=== PATIENT | female | born 1950 | race Caucasian/White ===

== ENCOUNTER 2018-05-05 10:12 | Observation (INO) | payer BC ==
[~2018-05-05] VITALS: Ht 157.5 cm; Wt 84.0 kg
[~2018-05-05 10:12] MED LIST: AMLODIPINE5 MG PO; CRESTOR5 MG PO; ENALAPRIL20 MG PO; ENALAPRIL5 MG PO; FLEXERIL5 M1 PO; GLYBURIDE5 MG PO; METFORMIN500 MG PO; NAPROSYN500 MG PO; NORVASC2.5 MG PO; PAXIL30 MG PO; PERCOCET1 TA2 PO
--- NOTE | 2018-05-05 10:15 | NUR ---
PT TO ROOM 12 VIA EMS
[2018-05-05 10:42] LABS: HEMATOCRIT 38.7 % (37.0-47.0); HEMOGLOBIN 12.4 g/dl (12.0-16.0); IMMATURE GRANULOCYTES 0.5 % (0.0-5.0); MEAN CORPUSCULAR HGB 28.5 pG CALC (26.0-32.0); NEUT# 5.59 thou/uL (2.00-7.15); RED BLOOD COUNT 4.35 mill/uL (4.20-5.60); RED CELL DISTRI WIDTH 13.2 % (11.5-15.5)
[2018-05-05] MEDS ORDERED: JANUVIA100 MG PO (10:50)
[2018-05-05 10:51] LABS: INFLUENZA A NONE DETECTED (NONE DETECT); INFLUENZA B NONE DETECTED (NONE DETECT)
[2018-05-05] MEDS ORDERED: ATORVASTATIN CA80 MG PO (10:51)
[2018-05-05] MEDS ORDERED: LANTUS100 UNIT/M SC (10:51)
[2018-05-05] MEDS ORDERED: ASPIRIN81 MG PO (10:51)
[2018-05-05] MEDS ORDERED: METOPROL TAR25 MG PO (10:53)
[2018-05-05] MEDS ORDERED: VIIBRYD20 MG PO (10:54)
[2018-05-05] MEDS ORDERED: FUROSEMIDE20 MG PO (10:55)
[2018-05-05] MEDS ORDERED: POT CHLORIDE20 ME3 PO (10:56)
[2018-05-05] MEDS ORDERED: LORAZEPAM0.5 MG PO (10:57)
[2018-05-05 11:03] LABS: ANION GAP 17 (6-22 (CALC)); BUN 18 mg/dL (8-23); BUN/CREATININE RATIO 18 (12-20 (CALC)); CARBON DIOXIDE 22 mmol/l (22-30); CHLORIDE 103 mmol/l (95-108); GFR 55 ML/MIN (>=60 (CALC)); GFR FOR AFR.AMER. > 60 ML/MIN (>=60 (CALC)); POTASSIUM 4.4 mmol/l (3.5-5.1); SODIUM 138 mmol/l (137-146)
--- NOTE | 2018-05-05 11:13 | NUR ---
PT RETURNED FROM RADIOLOGY. ADVISED OF WAIT TIME FOR TEST RESULTS. PT VOICED UNDERSTANDING. VSS.
--- NOTE | 2018-05-05 12:01 | NUR ---
ACCUCHSOCO Mazariegos MD AWARE. IV SITES HEALTHY. IV FLUIDS CONTINUE
--- NOTE | 2018-05-05 12:06 | NUR ---
REPORT CALLED TO NURSE ON [facility]. ADVISED OF ALL ATTACHMENTS, EVENTS, MEDS AND ADMIT POC. IV SITES HEALTHY. VSS.
--- NOTE | 2018-05-05 12:09 | NUR ---
TALKED TO PT REGARDING PROPER DIET AND OFFERED [facility] COMPOSITION MIXER TO VISIT PT WHILE SHE IS HERE. PT AGREED AND WAS THANKFUL FOR ANY HELP TO GET HER WELL.
--- NOTE | 2018-05-05 12:12 | NUR ---
PT TO [facility] ROOM 289 VIA STRETCHER IN NO APPARENT DISTRESS.
--- NOTE | 2018-05-05 12:16 | NUR ---
PT ARRIVED TO FLOOR VIA STRETCHER ACCOMPANIED BY CLARICE DEGROOT. TRANSPORTED TO BED FROM STRETCHER W/ ASSISTANCE BY DUNIA LAMB. ASSESSMENT COMPLETE. PT A/O X3. PT REPORTS FEELING UNABLE TO CONCETRATE. SPEECH IS CLEAR. RESP EVEN AND UNLABORED. LUNG SOUNDS CLEAR. TELE IN PLACE. LAST BM. 05/04/18. ABDOMEN DISTENDED AND SOFT. BOWEL SOUNDS ACTIVE X4. STRONG RADIAL AND PEDAL PULSES. #20 RAC SL. FLUSHED AND PATENT. SITE APPEARS HEALTHY. EMS #20 LAC SL. FLUSHED AND PATENT. SITE APPEARS HEALTHY. SKIN INTACT. PLAN OF CARE DISCUSSED. PT STATES UNDERSTANDING. SAFETY PRECAUTIONS IN PLACE. CALL LIGHT IN REACH. WILL CONTINUE TO MONITOR.
[2018-05-05 12:20] VITALS: BP 140/66
--- NOTE | 2018-05-05 14:43 | NUR ---
PT REPORTS DULL, PRESSURE TO HEAD 5 OUT OF 10 ON PAIN SCALE. MEDICATED W/ 2 325MG TYLENOL TABLETS. RELAXATION TECHNIQUES ENFORCED. ROOM LIGHT DIMMED AND CURTAINS SHUT. PT DENIES ANY FURTHER NEEDS AT THIS TIME. CALL LIGHT IN REACH. WILL CONTINUE TO MONITOR.
--- NOTE | 2018-05-05 15:35 | NUR ---
PT APPEARS TO BE SLEEPING IN BED. HEAD PAIN REASSESSED. PT STATES PAIN HAS REDUCED TO 4 OUT OF 10 ON PAIN SCALE. PT ALSO STATES RESTING AND DIMMED LIGHTING HELPS W/ HEAD PAIN. DENIES ANY FURTHER NEEDS AT THIS TIME. CALL LIGHT IN REACH. WILL CONTINUE TO MONITOR.
--- NOTE | 2018-05-05 19:00 | NUR ---
RECEIVED CHANGE OF SHIFT REPORT FROM Betty MIRELES LPN. PT ALERT AND ORIENTED AND LYING IN BED TALKING ON THE PHONE. NO APPARENT ACUTE DISTRESS NOTED. WILL CONTINUE TO MONITOR.
[2018-05-05 20:00] VITALS: BP 144/79
--- NOTE | 2018-05-06 | NUR ---
PT RESTING QUIETLY IN BED. NO APPARENT ACUTE DISTRESS NOTED IN PT'S CONDITION.
[2018-05-06 04:00] VITALS: BP 138/68
--- NOTE | 2018-05-06 04:18 | NUR ---
PT SLEPT WELL DURING THE NIGHT. NO APPARENT ACUTE CHANGES NOTED IN PT'S CONDITION
[2018-05-06 05:41] LABS: CHOLESTEROL HDL RATIO 2.2 (<4.4 (CALC))
[2018-05-06 08:34] VITALS: BP 125/61
--- NOTE | 2018-05-06 08:34 | NUR ---
PT ASSESSMENT COMPLETE. PT A/O X3. SPEECH IS CLEAR. PT STATES SHE FEELS SOME PRESSURE IN HER HEAD, FEELING LITTLE"UNDER THE WEATHER" PT DENIES ANY CONFUSION AT THIS TIME. PT STATES SHE FEELS A BIT ANXIOUS AT THE MOMENT. MEDICATED W/ ONE 0.5 MG XANAX. RESP EVEN AND UNLABORED. LUNG SOUNDS CLEAR. TELE IN PLACE. BOWEL SOUNDS ACTIVE X4. #20 LAC SL. FLUSHED AND PATENT. SITE APPEARS HEALTHY. #20 RAC NS @100. SITE APPEARS HEALTHY. PT VERBALIZES THAT SHE WOULD LIKE TO SPEAK WITH A NETWORK SECURITY ADMINISTRATOR BEFORE SHE IS D/C R/T TO HER DIABETES. PLAN OF CARE DISCUSSED. SAFETY PRECAUTIONS IN PLACE. CALL LIGHT IN REACH. WILL CONTINUE TO MONITOR.
[2018-05-06 12:00] VITALS: BP 125/67
--- NOTE | 2018-05-06 12:10 | NUR ---
PT SITTING IN RECLINER. DENIES AND PAIN OR NEEDS AT THIS TIME. CALL LIGHT IN REACH. WILL CONTINUE TO MONITOR.
[2018-05-06] MEDS ORDERED: ISOSORBIDE MONO30 MG PO (13:08)
[2018-05-06 13:26] LABS: URINE BILIRUBIN - DIPSTICK NEGATIVE (NEGATIVE); URINE BLOOD DIPSTICK NEGATIVE (NEGATIVE); URINE COLOR YELLOW; URINE GLUCOSE - DIPSTICK >=1000 mg/dL (NEGATIVE); URINE KETONE NEGATIVE (NEGATIVE); URINE LEUK ESTERASE NEGATIVE (NEGATIVE); URINE NITRITE - DIPSTICK NEGATIVE (Negative); URINE PH 5.5 (4.5-8.0); URINE PROTEIN - DIPSTICK NEGATIVE (NEG-TRACE); URINE SPECIFIC GRAVITY 1.015; URINE UROBILINOGEN - DIPSTICK 0.2 E.U./dL (0.2)
[2018-05-06 13:29] LABS: URINE CLARITY CLEAR
[2018-05-06 13:58] LABS: BARBITURATES NEGATIVE (NEGATIVE); COCAINE NEGATIVE (NEGATIVE); METHADONE NEGATIVE (NEGATIVE); OXCYCODONE NEGATIVE (NEGATIVE); TETRAHYDROCANNABIONOL NEGATIVE (NEGATIVE); TRICYLIC ANTIDEPRESSANTS NEGATIVE (NEGATIVE)
[2018-05-06] MEDS ORDERED: LANTUS100 UNIT/M SC (14:29)
[2018-05-06 15:58] VITALS: BP 114/61
--- NOTE | 2018-05-06 16:50 | NUR ---
EDUCATED PT ON USE OF GLUCOMETER AND THE DIFFERENCE BETWEEN A LANCET AND STRIPS. FOOD AND BEVERAGE COORDINATOR DEMONSTRATED USED OF GLUCOMETER, LANCET, AND STRIPS. PT FOLLOWED CHECKING HER OWN SUGAR. ALL QUESTIONED ANSWERED. REINFORCED TEACHING R/T LOGGING BLOOD SUGARS AT HOME AND DIET. PT STATES UNDERSTANDING. WILL CONTINUE TO MONITOR
--- NOTE | 2018-05-06 18:00 | NUR ---
Discharge instructions given. Patient verbalizes understanding of same. Discharged in stable condition via Wheelchair to Home with friend. All belongings sent with pt.
== END 2018-05-06 18:02 | disposition home or self-care (01) | DRG 639 ==
LOC: ED 10:12 → ED-I 11:32 → ED 11:47 → MS2 11:48
PROVIDERS: Family Medicine; Nurse Practitioner Family; ADMIT Internal Medicine; ATTEND Internal Medicine
DX: E11.65 Type 2 diabetes mellitus with hyperglycemia (principal); R41.0 Disorientation, unspecified; I10 Essential (primary) hypertension; E78.5 Hyperlipidemia, unspecified; M48.00 Spinal stenosis, site unspecified; F41.8 Other specified anxiety disorders; Z95.1 Presence of aortocoronary bypass graft; Z95.5 Presence of coronary angioplasty implant and graft; Z79.4 Long term (current) use of insulin; Z87.891 Personal history of nicotine dependence
CPT/HCPCS: G0378